=== PATIENT | male | born 1950 | race Two or more races ===

== ENCOUNTER 2016-06-17 17:19 | Emergency (ER) | payer MEDICARE ==
[2016-06-17] MEDS ORDERED: CEPHALEXIN 500 MG CAPSULE ONE (19:28)
== END 2016-06-17 20:31 | disposition home or self-care (01) ==
LOC: ED 17:19
DX: H60.91 Unspecified otitis externa, right ear (principal); H72.91 Unspecified perforation of tympanic membrane, right ear; I88.8 Other nonspecific lymphadenitis
CPT/HCPCS: 99283 ×2; A9270

== ENCOUNTER 2016-08-02 21:12 | Observation (INO) | payer MEDICARE ==
[2016-08-02] MEDS ORDERED: ASPIRIN CHEWTAB 81 MG TABLET ONE (21:26)
[2016-08-02] MEDS ORDERED: ALBUTEROL/IPRATROPIUM 2.5/0.5 MG 3 ML/EACH DOSE ONE (21:36)
[2016-08-02 21:37] LABS: ABSOLUTE NEUTROPHIL COUNT 5.3 K/mm3 (1.8-7.7); BASO # 0.1 K/mm3 (0.0-0.2); EOS # 0.9 (0.0-0.5); EOS % 9.7 % (0.9-2.9); HEMATOCRIT 41.6 % (32.0-52.0); HEMOGLOBIN 13.6 gm/l (14.0-18.0); IMM NEUT% 0.1 % (0-1); LYMPH # 1.9 (1.0-4.8); LYMPH % 21.5 % (15-45); MEAN CELL VOLUME 91.2 fl (80.0-94.0); MEAN CORPUSCULAR HEMOGLOBIN 29.8 pg (27.0-31.0); MEAN CORPUSCULAR HGB CONC 32.7 g/dl (33.0-37.0); MEAN PLATELET VOLUME 11.2 fl (7.4-10.4); MONO # 0.7 (0.0-0.8); MONO % 7.7 % (4-12); PLATELET COUNT 245 K/mm3 (130-400); RED CELL DISTRIBUTION WIDTH 12.6 % (11.5-14.5)
[2016-08-02] MEDS ORDERED: FUROSEMIDE 40 MG/4 ML VIAL ONE (21:48)
[2016-08-02 21:54] LABS: ALB/GLOB RATIO 1.3 (>1.0); ALBUMIN 4.4 gm/dL (3.5-5.7); CALCIUM 9.2 mg/dL (8.6-10.3); MAGNESIUM 2.1 mg/dL (1.9-2.7)
[2016-08-02 22:00] LABS: TROPONIN I 0.03 ng/ml (0.0-0.06)
[2016-08-02 22:03] LABS: CKMB ISOENZYME 2.9 ng/ml (0.6-6.3)
[2016-08-02] MEDS ORDERED: REGADENOSON 0.1 MG DOSE IV ONE (22:47)
[2016-08-02 23:30] VITALS: BMI 37.0
[2016-08-03] MEDS ORDERED: MAGNESIUM HYDROXIDE 30 ML UDCUP PO PRN (00:16)
[2016-08-03] MEDS ORDERED: BISACODYL 10 MG SUP PR PRN (00:16)
[2016-08-03] MEDS ORDERED: ACETAMINOPHEN 325 MG TABLET PO PRN (00:16)
[2016-08-03] MEDS ORDERED: BISACODYL 5 MG TABLET.EC PO PRN (00:16)
[2016-08-03] MEDS ORDERED: BLISTEX LIPSTICK 1 EACH TP PRN (00:16)
[2016-08-03] MEDS ORDERED: SODIUM CHLORIDE 0.9% 100 ML IV PRN (00:16)
[2016-08-03] MEDS ORDERED: MENTHOL/CETYLPYRD 1 EACH LOZENGE PO PRN (00:16)
[2016-08-03] MEDS ORDERED: INSULIN ASPART (DOSE) 100 UNITS/1 ML SUB-Q PRN (00:24)
[2016-08-03] MEDS ORDERED: NITROGLYCERIN 0.4 MG/TAB.SUBL BOT SL PRN (00:27)
[2016-08-03] MEDS: METOPROLOL TARTRATE 25 MG TABLET PO SCH ×2 (01:21→08:34)
[2016-08-03 06:14] LABS: ABSOLUTE NEUTROPHIL COUNT 5.4 K/mm3 (1.8-7.7); BASO # 0.1 K/mm3 (0.0-0.2); EOS # 0.6 (0.0-0.5); HEMATOCRIT 34.9 % (32.0-52.0); HEMOGLOBIN 11.6 gm/l (14.0-18.0); IMM NEUT% 0.2 % (0-1); LYMPH # 1.4 (1.0-4.8); LYMPH % 16.8 % (15-45); MEAN CELL VOLUME 89.5 fl (80.0-94.0); MEAN CORPUSCULAR HEMOGLOBIN 29.7 pg (27.0-31.0); MEAN CORPUSCULAR HGB CONC 33.2 g/dl (33.0-37.0); MEAN PLATELET VOLUME 11.6 fl (7.4-10.4); MONO # 0.8 (0.0-0.8); MONO % 9.9 % (4-12); NEUT % 65.1 % (43-75); PLATELET COUNT 220 K/mm3 (130-400); RED CELL DISTRIBUTION WIDTH 12.4 % (11.5-14.5)
[2016-08-03 06:16] LABS: INR 1.01; PROTHROMBIN TIME 10.6 SECONDS (9.3-11.4)
[2016-08-03 06:26] LABS: ALB/GLOB RATIO 1.3 (>1.0); ALBUMIN 3.7 gm/dL (3.5-5.7); CALCIUM 8.9 mg/dL (8.6-10.3)
--- NOTE | 2016-08-03 08:09 | RAD ---
08/03/2016 8:04 AM CHEST-AP BEDSIDE History: Chest pain Comparison: 12/06/2014 Findings: Single AP view of the chest is obtained. The lungs demonstrate patchy bilateral airspace disease with a central prominence. Venous congestion is present as well. Tiny effusions are thought to be present bilaterally. The cardiomediastinal silhouette top normal in size.. The osseous structures demonstrate diffuse osteopenia but are intact. IMPRESSION: Findings of probable heart failure though differential considerations could include multifocal pneumonia. Pneumonia is thought to be less likely given the overall picture. Follow-up as clinically warranted.
[2016-08-03] MEDS ORDERED: LOSARTAN POTASSIUM 50 MG TABLET PO SCH (09:00)
[2016-08-03] MEDS ORDERED: ATORVASTATIN CALCIUM 10 MG TABLET PO SCH (09:00)
[2016-08-03] MEDS ORDERED: GLIMEPIRIDE 2 MG TABLET PO SCH (09:00)
[2016-08-03] MEDS ORDERED: DOCUSATE SODIUM 100 MG CAPSULE PO SCH (09:00)
[2016-08-03] MEDS ORDERED: ASPIRIN (UNCOATED) 325 MG TABLET PO SCH (09:00)
[2016-08-03] MEDS ORDERED: GABAPENTIN 300 MG CAPSULE PO SCH (09:00)
[2016-08-03] MEDS ORDERED: FUROSEMIDE 20 MG TABLET PO SCH (09:00)
--- NOTE | 2016-08-03 11:07 | HP ---
JEANNINE WAN [id number] CHIEF COMPLAINT: Dyspnea. HISTORY OF PRESENT ILLNESS: The patient is a 66-year-old male with a history of diabetes, but no known cardiac history who described having somewhat abrupt dyspnea, and some pressure starting at 4, or 5 p.m. this afternoon. He denies overt chest pain, but had significant difficulty breathing along with some wheezing, and some sensation of abdominal fullness. He had come to the emergency room and was given nitroglycerin and some Lasix and notes he can breathe normally now. He had some feeling needing to cough, and some wheeze, and his describes him as breathing like a cat, but this has resolved. On further questioning, he has had some left lower flank to hip area pain, but this has been present for years. He did have previous B12 and folic acid levels checked 2011 which are both normal. PAST MEDICAL HISTORY: 1. 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 His last A1c was 12.1 on 07/09/2016. 2. He has a history of strokes as demonstrated on CT scanning showing pontine, and lacunar infarct. 3. Hypertension. 4. History of elevated cholesterol. His lipids had just been checked on 07/09/2016 showing HDL of 40, LDL of 100, and triglycerides 102. 5. He has had some chronic left lower flank pain, to hip pain. 6. Neuropathy in his feet is quite bothersome. PAST SURGICAL HISTORY: Appears to be negative. ALLERGIES: NO KNOWN DRUG ALLERGIES. HOME MEDICATIONS: Somewhat confusing because his family indicates he has had his medicines changed recently, but taking the list from [facility]: 1. Atorvastatin 10 mg daily. 2. Gabapentin 600 mg by mouth three times a day. 3. Amaryl 2 mg daily recently increased. 4. Losartan 50 mg by mouth twice a day. 5. Metformin 1000 mg by mouth twice a day. 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 He also worked at the [employer]. He is and has six kids, no smoking. Alcohol: He reports quitting 15 days ago for his birthday, but [facility] demonstrates a history of alcohol abuse. He is evangelical. FAMILY HISTORY: Father 62 of a hernia. Mom at the age of 93. REVIEW OF SYSTEMS: HEENT: Eyes: Difficulty reading small print. Ears: Decreased hearing with reduced hearing on the left and then recently when he had gone to [place] at the beach he developed difficulty with the right ear as well. Review of [facility], he has already been referred to ENT for perforated ear drum. Mouth is okay. He has dentures. Neck: Okay. Cardiac: No chest pain. Respiratory: He is not currently short of breath. Gastrointestinal: Stomach is ok. He notes pain on his left side in the lower abdomen toward the hip. Denies nausea, denies vomiting. No diarrhea. No urinary complaints. No bathroom problems. Extremities: Feet hurt in the toes. He notes some swelling, and has a subjective sensation of swelling in his fingers some more on the left hand. He has had no particular rashes, but occasional rivera noted with some irrigation. His knees are ok. PHYSICAL EXAMINATION: GENERAL: He is a hard of hearing male here with family. They give a somewhat confusing and disjointed history. VITAL SIGNS: Blood pressure is 164/103. Pulse is 81. Respirations are 20. Oxygen saturation is 98% on 3 liters. Temperature is 97.2. HEENT: Head is normocephalic, atraumatic. He is hard of hearing. Left tympanic membrane with some scaring. The right with a large perforation on the tympanic membrane noted. Nose is unremarkable. Mouth has dentures. NECK: Supple. No jugular venous distention, no thyromegaly. LUNGS: Fairly clear to auscultation with very minimal crackles, or wheezes. HEART: Regular rate and rhythm without murmur. ABDOMEN: Soft, nontender and nondistended. Bowel sounds are normal. There are a few linear scars on the left side of the abdomen, and there is a small cluster of scaring which could potentially represent previous zoster. GENITOURINARY: Deferred. EXTREMITIES: Lower legs with a few rivera consistent with his history of diabetes, but no significant pitting edema. Feet without ulceration noted. onychomycosis is noted. No cellulitis is seen. Pulses are good throughout. Hands are grossly normal. NEUROLOGIC: Speech is clear. LABORATORY: White count is 8.8, hemoglobin 13.6, and platelets 245. Patient's eosinophil count is 9.7%. Chemistry profile shows sodium 133, potassium 3.6, chloride 99, C02 of 26, BUN 7, creatinine 0.7, glucose 240, calcium 9.2, and magnesium 2.1. Bilirubin is 0.4. AST is 29, ALT 29, and alkaline phosphatase 139. BNP is elevated at 247. Troponin is 0.03. CK-MB is 2.9. Albumin is 4.4. Globulin is 3.5. DIAGNOSTIC IMAGIN. Electrocardiogram with sinus tachycardia, marked right axis deviation, and right bundle branch block is noted. Q-wave suggested inferiorly, but no acute ST changes noted at this time. 2. Chest x-ray shows what appears to bilateral pulmonary edema with cephalization noted, and modest obscuring of heart borders, small pleural effusions noted bilaterally. Infiltrate is not otherwise seen. ASSESSMENT/PLAN: 1. Acute dyspnea with chest x-ray changes concerning for acute congestive heart failure with concern that this could represent acute coronary syndrome. Patient is now symptom free after receiving nitroglycerine and some Lasix, but will be given aspirin and a beta alva, and monitor troponin. Anticipate performing a Myoview exam in the morning to assess ejection fraction, and coronary prefusion. 2. Diabetes mellitus type 2 uncontrolled with elevated hemoglobin just last month. We will continue on glimepiride, and we will be holding metformin, but add sliding scale insulin at this time. He also has complications including neuropathy presumed due to diabetes. 3. Hypertension, anticipate resuming his losartan. He will be given Lasix and beta alva as well, and we will recheck his potassium. 4. History of alcohol abuse. The patient reports none in the last two weeks. No evidence of withdrawal at this time, but we will monitor. 5. Previous history of stroke, from 2015 CT of bilateral lacunar infarcts and pontine stroke are noted. Anticipate use of aspirin and we will work to control blood pressure. 6. Right ear tympanic membrane perforation. Patient had been referred to Ears, Nose, and Throat already so we will refer to his primary care's referral for this. 7. Left hip pain, difficult to assess, but scaring inside the abdomen could suggest postherpetic neuralgia, and if particularly bothersome could consider trial of lidocaine patches although wished to keep medication regimen as simple as possible. 8. Deep venous thrombosis prophylaxis. Observation on ambulatory patient felt to be low risk at this time. However, if he were to develop further symptoms convincing for acute coronary syndrome, would anticipate full dose anticoagulation. 9. Code status. Communication is difficult at this time, but we will anticipate making him FULL CODE status at this time. EVER/kraig cc: Amanda Potter MD
--- NOTE | 2016-08-03 11:40 | NUC MED ---
Indication: Chest pain and shortness of breath Comparison: None Radiopharmaceutical: 11.0 millicuries technetium 99m sestamibi at rest, 36.1 millicuries technetium 99m sestamibi at stress Findings: Multiple scintigraphic SPECT images were obtained after IV administration of radiopharmaceutical to the patient. Lexiscan protocol was used under the supervision of Dr. Newman. Patient achieved 50 percent of the maximal age predicted heart rate. Patient had flushing symptoms during the exam. EKG demonstrated no changes from. Study was terminated at the end of protocol. Scintigraphic images demonstrate probable small area of fixed decreased uptake along the anterior apical region. No other areas of ischemia or infarction. Wall motion is globally normal though hypokinetic in the area of probable old infarction. Ejection fraction is 51%%. Impression: Findings of probable old apical anterior infarction with focal hypokinesia. No other area of ischemia or infarction. Ejection fraction is 51%. Findings were called to Dr. Newman at approximately 1136 hours on 08/02/2016.
[2016-08-03 11:43] VITALS: BP 146/86
[2016-08-03 12:28] LABS: TROPONIN I 0.06 ng/ml (0.0-0.06)
[2016-08-03 12:31] LABS: CKMB ISOENZYME 2.4 ng/ml (0.6-6.3)
--- NOTE | 2016-08-03 17:02 | DS ---
JEANNINE WAN [id number] ADMIT DATE: 08/02/2016 DISCHARGE DATE: 08/03/2016 ADMIT DIAGNOSES: 1. Acute dyspnea. 2. Chest pain. 3. Diabetes type 2 with poor control. 4. Hypertension. DISCHARGE DIAGNOSES: 1. Acute dyspnea. 2. Chest pain. 3. Diabetes type 2 with poor control. 4. Hypertension. PROCEDURE: Lexiscan negative for reversible ischemia with an ejection fraction of 51%. ADMIT HISTORY AND PHYSICAL: Please see Dr. Sandoval's note for details. BRIEFLY: Mr. Keating is a 66-year-old male with a history of diabetes who presented to the emergency room with a history of chest pressure and shortness of breath. In the emergency room he was worked up and found to have chest x-ray evidence and lab evidence of congestive heart failure exacerbation. He had no known cardiac disease. His workup was otherwise unremarkable. He was treated with nitroglycerin, and Lasix with a prompt improvement in his symptoms. He was subsequently admitted to the Hospitalist service for further workup. HOSPITAL COURSE: He was admitted. He remained asymptomatic throughout his hospitalization. His second set of cardiac enzymes did have a borderline troponin of 0.08. Again, this was asymptomatic. On the morning of discharge he underwent a Lexiscan Myoview that showed evidence of an old apical fixed defect consistent with a scar and as well as some hypokinesis there, but there were no areas of reversible ischemia. Ejection fraction was noted to be 51%. Echocardiogram was not available this weekend and we have elected to defer this to the outpatient setting. Since he was feeling so well with a negative stress test and normalization of his cardiac enzymes, it was felt that he was safe to go home with plans for outpatient follow up. DISCHARGE MEDICATIONS: 1. Metoprolol 12.5 mg by mouth twice a day (new medication). 2. Aspirin 325 by mouth daily (new medication). 3. Lasix 20 mg by mouth every day (new medication). All other medications as prior to admit as follows: 1. Lipitor 10 mg by mouth every day. 2. Neurontin 600 mg by mouth three times a day. 3. Amaryl 2 mg by mouth every day. 4. Losartan 50 mg by mouth twice a day. 5. Metformin 1000 mg by mouth twice a day. DISCHARGE FOLLOW UP: I would like him to follow up with his regular Dr. Amanda Potter in this next week for a recheck and for consideration for referral for echocardiogram. EDINSON/kraig Cc: Amanda Potter MD
== END 2016-08-03 13:35 | disposition home or self-care (01) ==
LOC: ED 21:12 → MS 22:46
PROVIDERS: ADMIT Family Medicine; ATTEND Family Medicine
DX: R06.00 Dyspnea, unspecified (principal); E11.40 Type 2 diabetes mellitus with diabetic neuropathy, unspecified; I10 Essential (primary) hypertension; E78.00 Pure hypercholesterolemia, unspecified; M25.552 Pain in left hip; F10.21 Alcohol dependence, in remission; Z86.73 Personal history of transient ischemic attack (TIA), and cerebral infarction without residual deficits
CPT/HCPCS: 83880; 85025 ×2; 82553 ×2; 80053 ×2; 83735; 85610; 84484 ×3; 36415 ×3; 71010; 78452; 94640; 99285 ×2; 96374; 93017; A9270 ×10; J1940; J2785; A9500